=== PATIENT | male | born 1965 | race Caucasian/White ===

== ENCOUNTER → 2017-01-17 | Outpatient (CLI) | payer BC, OTHER ==
--- NOTE | 2017-01-17 10:39 | XR ---
EXAMINATION TYPE: XR Hip Complete LT DATE OF EXAM: 01/17/2017 CLINICAL HISTORY: Left hip pain with no known injury TECHNIQUE: AP and frogleg views of the left hip are obtained. COMPARISON: None. FINDINGS: There is no acute fracture/dislocation evident in the left hip. There is mild medial and c ephalad joint space narrowing with acetabular sclerosis as well as foveal osteophyte and small acetab ular sourcil osteophyte. No subchondral cysts are seen. The overlying soft tissue appears unremarkab le. Osseous mineralization is within normal limits. IMPRESSION: There is no acute fracture or dislocation in the left hip. Mild left femoral acetabular osteoarthropathy.
--- NOTE | 2017-01-17 10:40 | XR ---
EXAMINATION TYPE: XR lumbar spine 2 or 3V DATE OF EXAM: 01/17/2017 CLINICAL HISTORY: Low back pain with no known injury TECHNIQUE: Frontal and lateral images of the lumbar spine are obtained. COMPARISON: None FINDINGS: There are 5 lumbar type vertebral bodies identified. The lumbar spine shows satisfactory alignment without evidence of acute fracture or dislocation. Vertebral body heights and disk space he ights are within normal limits. Mild intervertebral disc space narrowing is seen at T12-L1 and L1-L 2. Small inferior endplate Schmorl's nodes are seen of T12 and L1. Mild facet arthropathy is present at L4-L5 and L5-S1 as well as small anterior multilevel osteophytes. The overlying soft tissue appear s unremarkable. Mild atherosclerosis is seen of the abdominal aorta. IMPRESSION: 1. No acute fracture or dislocation is seen in the lumbar spine. 2. Mild multilevel degenerative disc disease. If pain persists MRI could be performed to evaluate for disc herniation.
== END | disposition home or self-care (01) ==
LOC: RADXRMAIN 08:49
PROVIDERS: ATTEND Family Medicine
DX: M16.12 Unilateral primary osteoarthritis, left hip (principal); M51.36 Other intervertebral disc degeneration, lumbar region
CPT/HCPCS: 72100; 73502

== ENCOUNTER 2017-05-06 06:37 | Day surgery (SDC) | payer BC ==
[2017-05-02 14:14] VITALS: BMI 26.4
[~2017-05-06 06:37] MED LIST: LACTATED RINGERS 1,000 ML IV SCH
[2017-05-06 07:24] VITALS: TEMP 98
[2017-05-06] MEDS ORDERED: LIDOCAINE 1% 20 ML VIAL (10MG/ML) FOR IV START INTRADERMA ONE (07:34)
[2017-05-06] MEDS ORDERED: LIDOCAINE 1% INJ 10MG/ML (20 ML MDV) ONE (07:37)
[2017-05-06] MEDS ORDERED: fentaNYL (PF) 50 MCG/ML 2 ML AMP ONE (07:37)
[2017-05-06] MEDS ORDERED: PROPOFOL 10 MG/ML 20 ML VIAL IV ONE (07:37)
[2017-05-06] MEDS ORDERED: MIDAZOLAM 2 MG/2 ML VIAL ONE (07:37)
--- NOTE | 2017-05-06 08:10 | P.PCN ---
Date of Procedure: 05/06/17 Preoperative Diagnosis: Screening colonoscopy Postoperative Diagnosis: Small internal hemorrhoids Procedure(s) Performed: Colonoscopy Anesthesia: MAC Surgeon: Radha Michele Estimated Blood Loss (ml): 0 IV fluids (ml): 300 Pathology: none sent Condition: stable Disposition: PACU Indications for Procedure: Screening colonoscopy Operative Findings: Normal mucosa from rectum to cecum Small internal hemorrhoids Description of Procedure: Patient was taken to the endoscopy suite and placed in the left lateral decubitus position. Sedation was administered. Rectal examination was performed and patient was noted to have good sphincter tone with no masses. The colonoscope was passed through the anus into the rectum. It was passed to the sigmoid colon up to the splenic flexure. It was passed through the transverse colon hepatic flexure right colon down to the area of the cecum. Circumferential observation of the mucosa did not reveal any lesions of concern in the cecum or right colon. No lesions of concern were noted in the transverse colon left colon or sigmoid colon. The scope was brought down to the rectum where it was retroflexed small internal hemorrhoids identified. Approximately 6-1/2 minutes were taken to withdraw the scope from the area of the cecum to the rectum. Impression/plan: 1. Normal mucosa from rectum to cecum 2. Small internal hemorrhoids Plan: 1. Repeat scope 7-10 years
--- NOTE | 2017-05-06 08:11 | P.DS ---
Providers Attending physician: Radha Michele Primary care physician: Oh Whelan Plan - Discharge Summary New Discharge Prescriptions: No Action Triamcinolone Acetonide [Nasacort] 2 spray EA NOSTRIL DAILY Pantoprazole [Protonix] 40 mg PO Q2D Levocetirizine Dihydrochloride [Xyzal] 5 mg PO Q2D Albuterol Inhaler [Ventolin Hfa Inhaler] 2 inhaler INHALATION QID Discharge Medication List Levocetirizine Dihydrochloride [Xyzal] 5 mg PO Q2D 05/02/17 [History] Pantoprazole [Protonix] 40 mg PO Q2D 05/02/17 [History] Triamcinolone Acetonide [Nasacort] 2 spray EA NOSTRIL DAILY 05/02/17 [History] Albuterol Inhaler [Ventolin Hfa Inhaler] 2 inhaler INHALATION QID 05/06/17 [ History] Activity/Diet/Wound Care/Special Instructions: Do not drive today Call Dr. Whelan if any questions or concerns regarding procedure Discharge Disposition: HOME SELF-CARE
[2017-05-06 08:38] VITALS: BP 133/85; PULSE 61; RESP 18
== END 2017-05-06 08:49 | disposition home or self-care (01) ==
LOC: ORWHC2ENDO 06:37
PROVIDERS: ATTEND Surgery
DX: Z12.11 Encounter for screening for malignant neoplasm of colon (principal); K64.8 Other hemorrhoids; J45.909 Unspecified asthma, uncomplicated; K21.9 Gastro-esophageal reflux disease without esophagitis; M19.90 Unspecified osteoarthritis, unspecified site; Z79.51 Long term (current) use of inhaled steroids; Z79.899 Other long term (current) drug therapy; Z79.1 Long term (current) use of non-steroidal anti-inflammatories (NSAID); Z79.84 Long term (current) use of oral hypoglycemic drugs; Z88.1 Allergy status to other antibiotic agents
CPT/HCPCS: J2250; J2001; J3010; J2704; G0121

== ENCOUNTER 2018-01-13 14:59 | Observation (INO) | payer BC ==
[2018-01-13] MEDS ORDERED: NITROGLYCERIN OINT 1 INCH/GM PACKET TOPICAL STA (15:25)
[2018-01-13] MEDS ORDERED: ASPIRIN 81 MG PO STA (15:25)
--- NOTE | 2018-01-13 15:30 | ED ---
General Adult HPI - General Chief complaint: Chest Pain Stated complaint: SOB,burning in chest Time Seen by Provider: 01/13/18 15:19 Source: patient Mode of arrival: ambulatory Limitations: no limitations - History of Present Illness Initial comments: Patient is a pleasant 42-year-old male presenting to the emergency department chest discomfort. Symptoms have been occurring over several days. Discomfort feels like burning in his chest. Patient does have some associated dyspnea. Symptoms are mild at this time. Symptoms have been intermittent. Symptoms are not necessarily exertional. No nausea vomiting. No fever. No sweating. Patient did have similar symptoms a proximal he 5 years ago associated with reflux. - Related Data Home Medications Medication Instructions Recorded Confirmed Levocetirizine Dihydrochloride 5 mg PO DAILY 05/02/17 01/13/18 [Xyzal] Pantoprazole [Protonix] 40 mg PO DAILY 05/02/17 01/13/18 Triamcinolone Acetonide [Nasacort] 2 spray EA NOSTRIL DAILY PRN 05/02/17 Albuterol Inhaler [Ventolin Hfa 2 puff INHALATION RT-QID PRN 05/06/17 01/13/18 Inhaler] Allergies Allergy/AdvReac Type Severity Reaction Status Date / Time clindamycin [From Cleocin] Allergy Rash/Hives Verified 01/13/18 16:10 Tetracyclines AdvReac Nausea Verified 01/13/18 16:10 Review of Systems ROS Statement: Those systems with pertinent positive or pertinent negative responses have been documented in the HPI. ROS Other: All systems not noted in ROS Statement are negative. Constitutional: Denies: fever Eyes: Denies: eye pain ENT: Denies: ear pain Respiratory: Reports: dyspnea. Denies: cough Cardiovascular: Reports: chest pain Gastrointestinal: Denies: abdominal pain Genitourinary: Denies: dysuria Musculoskeletal: Denies: back pain Skin: Denies: rash Neurological: Denies: weakness Past Medical History Past Medical History: Asthma, GERD/Reflux Additional Past Medical History / Comment(s): SEASONAL ALLERGIES. ALLERGY INDUCED ASTHMA History of Any Multi-Drug Resistant Organisms: None Reported Additional Past Surgical History / Comment(s): POLYP REMOVED FROM VOCAL CORD Past Anesthesia/Blood Transfusion Reactions: No Reported Reaction Past Psychological History: No Psychological Hx Reported Smoking Status: Never smoker Past Alcohol Use History: Occasional Past Drug Use History: None Reported - Past Family History Mother Family Medical History: No Reported History General Exam Limitations: no limitations General appearance: alert, in no apparent distress Head exam: Present: atraumatic Eye exam: Present: normal appearance, PERRL ENT exam: Present: normal oropharynx Neck exam: Present: normal inspection Respiratory exam: Present: normal lung sounds bilaterally. Absent: chest wall tenderness Cardiovascular Exam: Present: regular rate, normal rhythm Expanded Peripheral pulses: 2+: Radial (R), Radial (L), Posterior Tibialis (R), Posterior Tibialis (L), Dorsalis Pedis (R), Dorsalis Pedis (L) GI/Abdominal exam: Present: soft. Absent: tenderness Extremities exam: Present: normal inspection. Absent: pedal edema, calf tenderness Neurological exam: Present: alert Psychiatric exam: Present: normal affect, normal mood Skin exam: Present: normal color Course Vital Signs 01/13/18 01/13/18 01/13/18 15:04 15:08 16:08 Temperature 98.3 F Pulse Rate 67 65 Respiratory 18 20 20 Rate Blood Pressure 172/99 140/96 O2 Sat by Pulse 100 100 Oximetry EKG Findings - EKG Comments: EKG Findings:: Normal sinus rhythm at 61. FL 146. QRS 114. QT 398. QTC 400. Left axis. Normal QRS. No acute ST change. Medical Decision Making - Medical Decision Making Patient reevaluated and resting comfortably in bed. Symptoms have improved and are now near resolved. Patient updated on results and plan. Dr. Whelan has been paged. - Lab Data Result diagrams: 01/13/18 15:21 01/13/18 15:21 Lab Results 01/13/18 01/13/18 01/13/18 Range/Units 15:21 15:21 15:21 WBC 6.5 (3.8-10.6) k/uL RBC 5.00 (4.30-5.90) m/uL Hgb 15.0 (13.0-17.5) gm/dL Hct 44.9 (39.0-53.0) % MCV 89.8 (80.0-100.0) fL MCH 30.0 (25.0-35.0) pg MCHC 33.4 (31.0-37.0) g/dL RDW 11.7 (11.5-15.5) % Plt Count 207 (150-450) k/uL Neutrophils % 55 % Lymphocytes % 34 % Monocytes % 6 % Eosinophils % 2 % Basophils % 0 % Neutrophils # 3.6 (1.3-7.7) k/uL Lymphocytes # 2.2 (1.0-4.8) k/uL Monocytes # 0.4 (0-1.0) k/uL Eosinophils # 0.1 (0-0.7) k/uL Basophils # 0.0 (0-0.2) k/uL PT (9.0-12.0) sec INR (<1.2) APTT (22.0-30.0) sec Sodium 143 (137-145) mmol/L Potassium 3.9 (3.5-5.1) mmol/L Chloride 108 H (98-107) mmol/L Carbon Dioxide 23 (22-30) mmol/L Anion Gap 12 mmol/L BUN 14 (9-20) mg/dL Creatinine 0.91 (0.66-1.25) mg/dL Est GFR (CKD-EPI)AfAm >90 (>60 ml/min/1.73 sqM) Est GFR (CKD-EPI)NonAf >90 (>60 ml/min/1.73 sqM) Glucose 107 H (74-99) mg/dL Calcium 9.8 (8.4-10.2) mg/dL Magnesium 2.2 (1.6-2.3) mg/dL Total Bilirubin 0.5 (0.2-1.3) mg/dL AST 36 (17-59) U/L ALT 34 (21-72) U/L Alkaline Phosphatase 49 (38-126) U/L Total Creatine Kinase 108 (55-170) U/L CK-MB (CK-2) 1.8 (0.0-2.4) ng/mL CK-MB (CK-2) Rel Index 1.7 Troponin I <0.012 (0.000-0.034) ng/mL NT-Pro-B Natriuret Pep pg/mL Total Protein 8.0 (6.3-8.2) g/dL Albumin 4.8 (3.5-5.0) g/dL 01/13/18 01/13/18 Range/Units 15:21 15:21 WBC (3.8-10.6) k/uL RBC (4.30-5.90) m/uL Hgb (13.0-17.5) gm/dL Hct (39.0-53.0) % MCV (80.0-100.0) fL MCH (25.0-35.0) pg MCHC (31.0-37.0) g/dL RDW (11.5-15.5) % Plt Count (150-450) k/uL Neutrophils % % Lymphocytes % % Monocytes % % Eosinophils % % Basophils % % Neutrophils # (1.3-7.7) k/uL Lymphocytes # (1.0-4.8) k/uL Monocytes # (0-1.0) k/uL Eosinophils # (0-0.7) k/uL Basophils # (0-0.2) k/uL PT 10.3 (9.0-12.0) sec INR 1.0 (<1.2) APTT 25.1 (22.0-30.0) sec Sodium (137-145) mmol/L Potassium (3.5-5.1) mmol/L Chloride (98-107) mmol/L Carbon Dioxide (22-30) mmol/L Anion Gap mmol/L BUN (9-20) mg/dL Creatinine (0.66-1.25) mg/dL Est GFR (CKD-EPI)AfAm (>60 ml/min/1.73 sqM) Est GFR (CKD-EPI)NonAf (>60 ml/min/1.73 sqM) Glucose (74-99) mg/dL Calcium (8.4-10.2) mg/dL Magnesium (1.6-2.3) mg/dL Total Bilirubin (0.2-1.3) mg/dL AST (17-59) U/L ALT (21-72) U/L Alkaline Phosphatase (38-126) U/L Total Creatine Kinase (55-170) U/L CK-MB (CK-2) (0.0-2.4) ng/mL CK-MB (CK-2) Rel Index Troponin I (0.000-0.034) ng/mL NT-Pro-B Natriuret Pep 32 pg/mL Total Protein (6.3-8.2) g/dL Albumin (3.5-5.0) g/dL - Radiology Data Radiology results: image reviewed (Chest x-ray shows no acute process) Disposition Clinical Impression: Chest pain Disposition: ADMITTED IP TO THIS HOSP Is patient prescribed a controlled substance at d/c from ED?: No Referrals: Oh Whelan MD [Primary Care Provider] - 1-2 days Decision Time: 16:38
[2018-01-13 15:54] LABS: Basophils % (A) 0 %; Eosinophils # (A) 0.1 k/uL (0-0.7); Eosinophils % (A) 2 %; HCT 44.9 % (39.0-53.0); Lymphocytes # (A) 2.2 k/uL (1.0-4.8); Lymphocytes % (A) 34 %; MCHC 33.4 g/dL (31.0-37.0); MCV 89.8 fL (80.0-100.0); Mean Platelet Volume 6.9; Monocytes # (A) 0.4 k/uL (0-1.0); Monocytes % (A) 6 %; Neutrophils # (A) 3.6 k/uL (1.3-7.7); Neutrophils % (A) 55 %; Platelet Count 207 k/uL (150-450); RDW 11.7 % (11.5-15.5); WBC 6.5 k/uL (3.8-10.6)
--- NOTE | 2018-01-13 15:57 | XR ---
EXAMINATION TYPE: XR chest 2V DATE OF EXAM: 01/13/2018 COMPARISON: Prior chest x-ray 02/12/2016 HISTORY: Chest pain TECHNIQUE: Frontal and lateral views of the chest are obtained. FINDINGS: There is no focal air space opacity, pleural effusion, or pneumothorax seen. The cardiac silhouette size is within normal limits. The osseous structures are intact. There are overlying car diac leads. IMPRESSION: No acute cardiopulmonary process.
[2018-01-13 16:03] LABS: ALT 34 U/L (21-72); AST 36 U/L (17-59); Albumin 4.8 g/dL (3.5-5.0); Alkaline Phosphatase 49 U/L (38-126); Anion Gap 12 mmol/L; Blood Urea Nitrogen 14 mg/dL (9-20); Calcium 9.8 mg/dL (8.4-10.2); Carbon Dioxide 23 mmol/L (22-30); Chloride 108 mmol/L (98-107); Creatine Kinase 108 U/L (55-170); Glucose 107 mg/dL (74-99); Magnesium 2.2 mg/dL (1.6-2.3); Partial Thromboplastin Time 25.1 sec (22.0-30.0); Potassium 3.9 mmol/L (3.5-5.1); Prothrombin Time 10.3 sec (9.0-12.0); Sodium 143 mmol/L (137-145); Total Bilirubin 0.5 mg/dL (0.2-1.3)
[2018-01-13 16:15] LABS: Creatine Kinase MB 1.8 ng/mL (0.0-2.4); Troponin I <0.012 ng/mL (0.000-0.034)
[2018-01-13] MEDS ORDERED: NITROGLYCERIN SL TABS 0.4 MG TAB SUBLINGUAL PRN (16:38)
[2018-01-13] MEDS ORDERED: ALBUTEROL NEBULIZED 2.5 MG/3 ML INHALATION PRN (17:45)
[2018-01-13] MEDS ORDERED: FLUTICASONE 50MCG/SPRAY NASAL 16GM EA NOSTRIL PRN (17:45)
[2018-01-13] MEDS: NITROGLYCERIN OINT 1 INCH/GM PACKET TOPICAL SCH (20:20)
[2018-01-13 22:27] LABS: Creatine Kinase 96 U/L (55-170)
[2018-01-13 22:38] LABS: Creatine Kinase MB 1.6 ng/mL (0.0-2.4); Troponin I <0.012 ng/mL (0.000-0.034)
[2018-01-14 01:21] LABS: Cholesterol 205 mg/dL (<200); HDL Cholesterol 51 mg/dL (40-60); LDL Cholesterol,Calculated 138 mg/dL (0-99); Triglycerides 79 mg/dL (<150)
[2018-01-14 04:09] LABS: Creatine Kinase 94 U/L (55-170)
[2018-01-14 04:21] LABS: Creatine Kinase MB 1.5 ng/mL (0.0-2.4); Troponin I <0.012 ng/mL (0.000-0.034)
[2018-01-14 08:03] VITALS: RESP 18
[2018-01-14] MEDS ORDERED: LORATADINE 10 MG TAB PO SCH (09:00)
[2018-01-14] MEDS ORDERED: PANTOPRAZOLE 40 MG TABLET PO SCH (09:00)
[2018-01-14] MEDS ORDERED: ASPIRIN 325 MG TAB PO SCH (09:00)
[2018-01-14] MEDS ORDERED: RX INFO: IV CONTRAST WAS GIVEN 1 EACH MISC MISCELLANE PRN (09:31)
--- NOTE | 2018-01-14 10:22 | P.CRDCN ---
History of Present Illness History of present illness: Mr. eHrr is a pleasant 52-year-old male past medical history significant for dilated aortic root, gastroesophageal reflux disease and asthma. He follows with Dr. Min in the office. He denies history of coronary artery disease. We have been asked to see him in consultation for chest pain. He complains of feeling a burning sensation in the midsternal region associated with shortness of breath. The discomfort came at rest with no specific aggravating factors. He states the burning and shortness of breath felt exactly like symptoms he gets frequently that are related to his acid reflux. However, he checked his blood pressure and it was 140/110, this alarmed him and he decided to come for evaluation. He denies dizziness, palpitaitons, nausea, vomiting or diaphoresis. He is known to have a dilated aortic root, most recently at 4.2 cm. He last was in the office last year in February and at that time was advised to start lopressor 25 mg BID however he did not start that medication for personal reasons. At the time of my exam he is sitting up comfortably in bed in no acute distress. His symptoms have completely subsided. EKG reveals sinus mechanism with no acute ST or T-wave abnormalities. Chest xray negative for an acute cardiopulmonary process. Laboratory data reviewed, hemoglobin 15, platelets 207, sodium 143, potassium 3.9, creatinine 0.91, magnesium 2.2, cardiac enzymes negative 3, LDL 138, HDL 51. He takes no daily cardiac medications. Review of Systems At the time of my exam: CONSTITUTIONAL: Denies fever. Denies chills. EYES: Denies blurred vision. Denies vision changes. Denies eye pain. EARS, NOSE, MOUTH & THROAT: Denies headache. Denies sore throat. Denies ear pain. CARDIOVASCULAR: Denies chest pain. Denies shortness of breath. Denies orthopnea. Denies PND. Denies palpitations. RESPIRATORY: Denies cough. GASTROINTESTINAL: Denies abdominal pain. Denies diarrhea. Denies constipation. Denies nausea. Denies vomiting. MUSCULOSKELETAL: Denies myalgias. INTEGUMENTARY: Denies pruitis. Denies rash. NEUROLOGIC: Denies numbness. Denies tingling. Denies weakness. PSYCHIATRIC: Denies anxiety. Denies depression. ENDOCRINE: Denies fatigue. Denies weight change. Denies polydipsia. Denies polyurina. GENITOURINARY: Denies burning, hematuria or urgency with micturation. HEMATOLOGIC: Denies history of anemia. Denies bleeding. Past Medical History Past Medical History: Asthma, GERD/Reflux, Osteoarthritis (OA) Additional Past Medical History / Comment(s): SEASONAL ALLERGIES, arhtirits neck and lower back,2nd hand smoke exposure growing up. ALLERGY INDUCED ASTHMA History of Any Multi-Drug Resistant Organisms: None Reported Additional Past Surgical History / Comment(s): POLYP REMOVED FROM VOCAL CORD, colonoscopy Past Anesthesia/Blood Transfusion Reactions: No Reported Reaction Smoking Status: Never smoker - Past Family History Mother Family Medical History: Hypertension Additional Family Medical History / Comment(s): was started on bp meds at age 35. gallstones(sx0 Father Additional Family Medical History / Comment(s): age 52 from complications from smoking and etoh abuse Medications and Allergies Home Medications Medication Instructions Recorded Confirmed Type Levocetirizine Dihydrochloride 5 mg PO DAILY 05/02/17 01/13/18 History [Xyzal] Pantoprazole [Protonix] 40 mg PO DAILY 05/02/17 01/13/18 History Triamcinolone Acetonide [Nasacort] 2 spray EA NOSTRIL DAILY PRN 05/02/17 History Albuterol Inhaler [Ventolin Hfa 2 puff INHALATION RT-QID PRN 05/06/17 01/13/18 History Inhaler] Allergies Allergy/AdvReac Type Severity Reaction Status Date / Time clindamycin [From Cleocin] Allergy Rash/Hives Verified 01/13/18 16:10 Tetracyclines AdvReac Nausea Verified 01/13/18 16:10 Physical Exam Vitals: Vital Signs Temp Pulse Pulse Resp BP BP Pulse Ox 01/14/18 03:55 98.5 F 58 L 16 130/77 98 01/14/18 03:11 16 01/13/18 23:25 16 01/13/18 23:24 98.4 F 56 L 16 121/72 99 01/13/18 20:00 16 01/13/18 19:40 97.9 F 60 16 127/79 98 01/13/18 18:00 99 01/13/18 17:15 98.6 F 60 18 135/86 98 01/13/18 17:00 98.1 F 65 17 134/91 99 01/13/18 16:08 65 20 140/96 100 01/13/18 15:08 20 01/13/18 15:04 98.3 F 67 18 172/99 100 Intake and Output 01/13/18 01/14/18 01/14/18 22:59 06:59 14:59 Other: Voiding Method Toilet Toilet # Voids 1 2 Weight 79.5 kg Blood pressure 131/82 heart rate 62 afebrile maintaining oxygen saturation on room air GENERAL: This is a 52-year-old male in no apparent distress at the time of my examination. HEENT: Head is atraumatic, normocephalic. Pupils are equal, round. Sclerae anicteric. Conjunctivae are clear. Mucous membranes of the mouth are moist. Neck is supple. There is no jugular venous distention. No carotid bruit is heard. LUNGS: Clear to auscultation no wheezes, rales or rhonchi. No chest wall tenderness is noted on palpation or with deep breathing. HEART: Regular rate and rhythm without murmurs, rubs or gallops. S1 and S2 heard. ABDOMEN: Soft, nontender. Bowel sounds are heard. No organomegaly noted. EXTREMITIES: No evidence of peripheral edema and no calf tenderness noted. VASCULAR: Radial and dorsalis pedis pulses palpated, no evidence of clubbing. NEUROLOGIC: Patient is awake, alert and oriented x3. Results 01/13/18 15:21 01/13/18 15:21 Cardiac Enzymes 01/13/18 01/13/18 01/13/18 Range/Units 15:21 15:21 21:36 AST 36 (17-59) U/L CK-MB (CK-2) 1.8 1.6 (0.0-2.4) ng/mL Troponin I <0.012 <0.012 (0.000-0.034) ng/mL 01/14/18 Range/Units 03:14 AST (17-59) U/L CK-MB (CK-2) 1.5 (0.0-2.4) ng/mL Troponin I <0.012 (0.000-0.034) ng/mL Coagulation 01/13/18 Range/Units 15:21 PT 10.3 (9.0-12.0) sec APTT 25.1 (22.0-30.0) sec Lipids 01/13/18 Range/Units 15:21 Triglycerides 79 (<150) mg/dL Cholesterol 205 H (<200) mg/dL HDL Cholesterol 51 (40-60) mg/dL CBC 01/13/18 Range/Units 15:21 WBC 6.5 (3.8-10.6) k/uL RBC 5.00 (4.30-5.90) m/uL Hgb 15.0 (13.0-17.5) gm/dL Hct 44.9 (39.0-53.0) % Plt Count 207 (150-450) k/uL Comprehensive Metabolic Panel 01/13/18 Range/Units 15:21 Sodium 143 (137-145) mmol/L Potassium 3.9 (3.5-5.1) mmol/L Chloride 108 H (98-107) mmol/L Carbon Dioxide 23 (22-30) mmol/L BUN 14 (9-20) mg/dL Creatinine 0.91 (0.66-1.25) mg/dL Glucose 107 H (74-99) mg/dL Calcium 9.8 (8.4-10.2) mg/dL AST 36 (17-59) U/L ALT 34 (21-72) U/L Alkaline Phosphatase 49 (38-126) U/L Total Protein 8.0 (6.3-8.2) g/dL Albumin 4.8 (3.5-5.0) g/dL Current Medications Generic Name Dose Route Start Last Admin Trade Name Freq PRN Reason Stop Dose Admin Albuterol Sulfate 2.5 mg 01/13/18 17:45 Ventolin Nebulized INHALATION RT-QID PRN Shortness Of Breath Aspirin 325 mg 01/14/18 09:00 Aspirin PO DAILY VARUN Fluticasone Propionate 2 spray 01/13/18 17:45 Flonase Nasal [place] EA NOSTRIL DAILY PRN Allergy Symptoms Loratadine 10 mg 01/14/18 09:00 Claritin PO DAILY VARUN Nitroglycerin 1 inch 01/13/18 18:00 01/13/18 20:20 Nitro-Bid Oint TOPICAL Not Given Q6HR VARUN Nitroglycerin 0.4 mg 01/13/18 16:38 Nitrostat SUBLINGUAL Q5M PRN Chest Pain Pantoprazole Sodium 40 mg 01/14/18 09:00 Protonix PO DAILY VARUN Sodium Chloride 10 ml 01/13/18 21:00 01/13/18 20:19 Saline Flush IV 10 ml BID VARUN Administration Intake and Output 01/13/18 01/14/18 01/14/18 22:59 06:59 14:59 Other: Voiding Method Toilet Toilet # Voids 1 2 Weight 79.5 kg 01/13/18 15:21 01/13/18 15:21 Assessment and Plan Assessment: ASSESSMENT Chest pain, atypical. An acute coronary event has some ruled out with no EKG evidence of ischemia and negative cardiac enzymes. Aortic aneurysm, 4.2 cm at last assessment Gastroesophageal reflux disease Hypertension Dyslipidemia PLAN Obtain 2-D echocardiogram and Doppler study to assess cardiac structure and function. Perform stress echocardiogram to assess for stress-induced cardiac ischemia Obtain CT angios the chest to assess aorta. We recommend initiating him on metoprolol 25 mg twice a day for optimal blood pressure control in light of his aortic aneurysm. Lifestyle modifications recommended for lowering of LDL cholesterol with diet and exercise. Plan has been discussed in detail with the patient and he is agreeable. Nurse Practitioner note has been reviewed, I agree with a documented findings and plan of care. Patient was seen and examined.
[2018-01-14] MEDS ORDERED: METOPROLOL TARTRATE 25 MG TAB PO SCH (10:30)
--- NOTE | 2018-01-14 10:50 | CT ---
EXAMINATION TYPE: CT angio chest DATE OF EXAM: 01/14/2018 COMPARISON: 11/30/2013 HISTORY: 52-year-old male Thoracic aneurysm, chest pain TECHNIQUE: Contiguous axial scanning of the chest performed with IV Contrast, patient injected with 1 00 mL of Isovue 370. Coronal/sagittal MIP reconstructions performed. 3-D reconstructions generated on a dedicated independent workstation. CT DLP: 247.3 mGycm Automated exposure control for dose reduction was used. FINDINGS: Heart normal size without pericardial effusion. Ascending aorta overlying mildly aneurysmal at 4.0 cm. Conventional arch vessel branching anatomy. No thoracic lymphadenopathy. Strandy atelectasis at the posterior lung bases. Stable 5 mm pulmonary nodule along the minor fissure anterior midlung, axial image 32. Stable tiny 2 mm right lower lobe pulmonary nodule, axial image 36 . No consolidation or pleural effusion. Visualized upper abdomen shows hilar splenules. Bones: Endplate spondylosis midthoracic spine. No osseous destructive process. IMPRESSION: MILD ASCENDING AORTIC ANEURYSM AT 4.0 CM STABLE BACK TO 2013. A COUPLE 5 MM AND SMALLER PULMONARY NODULES ON THE RIGHT ARE ALSO STABLE FROM THAT TIME COMPATIBLE WI TH A BENIGN ETIOLOGY.
--- NOTE | 2018-01-14 11:27 | P.HPIM ---
History of Present Illness 52-year-old male presented to family physician with complaints of intermittent chest pain. A few days ago stated that he had radiation to his arms and stent feel well. Patient has a history of GERD and asthma. Patient has history of mild ascending aortic aneurysm 4.0 stable history of pulmonary nodule stable. Patient is to be evaluated by cardiology for chest pain Review of Systems Constitutional: Reports fatigue Cardiovascular: Reports chest pain Gastrointestinal: Reports heartburn Past Medical History Past Medical History: Asthma, GERD/Reflux, Osteoarthritis (OA) Additional Past Medical History / Comment(s): SEASONAL ALLERGIES, arhtirits neck and lower back,2nd hand smoke exposure growing up. ALLERGY INDUCED ASTHMA History of Any Multi-Drug Resistant Organisms: None Reported Additional Past Surgical History / Comment(s): POLYP REMOVED FROM VOCAL CORD, colonoscopy Past Anesthesia/Blood Transfusion Reactions: No Reported Reaction Smoking Status: Never smoker - Past Family History Mother Family Medical History: Hypertension Additional Family Medical History / Comment(s): was started on bp meds at age 35. gallstones(sx0 Father Additional Family Medical History / Comment(s): age 52 from complications from smoking and etoh abuse Medications and Allergies Home Medications Medication Instructions Recorded Confirmed Type Levocetirizine Dihydrochloride 5 mg PO DAILY 05/02/17 01/13/18 History [Xyzal] Pantoprazole [Protonix] 40 mg PO DAILY 05/02/17 01/13/18 History Triamcinolone Acetonide [Nasacort] 2 spray EA NOSTRIL DAILY PRN 05/02/17 History Albuterol Inhaler [Ventolin Hfa 2 puff INHALATION RT-QID PRN 05/06/17 01/13/18 History Inhaler] Metoprolol Tartrate [Lopressor] 25 mg PO BID #60 tab 01/14/18 Rx Allergies Allergy/AdvReac Type Severity Reaction Status Date / Time clindamycin [From Cleocin] Allergy Rash/Hives Verified 01/13/18 16:10 Tetracyclines AdvReac Nausea Verified 01/13/18 16:10 Physical Exam Vitals: Vital Signs Temp Pulse Pulse Resp BP BP Pulse Ox 01/14/18 08:00 62 18 01/14/18 07:25 97.9 F 62 18 131/82 99 01/14/18 03:55 98.5 F 58 L 16 130/77 98 01/14/18 03:11 16 01/13/18 23:25 16 01/13/18 23:24 98.4 F 56 L 16 121/72 99 01/13/18 20:00 16 01/13/18 19:40 97.9 F 60 16 127/79 98 01/13/18 18:00 99 01/13/18 17:15 98.6 F 60 18 135/86 98 01/13/18 17:00 98.1 F 65 17 134/91 99 01/13/18 16:08 65 20 140/96 100 01/13/18 15:08 20 01/13/18 15:04 98.3 F 67 18 172/99 100 Intake and Output 01/13/18 01/14/18 01/14/18 22:59 06:59 14:59 Other: Voiding Method Toilet Toilet Toilet # Voids 1 2 Weight 79.5 kg Results CBC & Chem 7: 01/13/18 15:21 01/13/18 15:21 Labs: Abnormal Lab Results - Last 24 Hours (Table) 01/13/18 01/13/18 Range/Units 15:21 15:21 Chloride 108 H (98-107) mmol/L Glucose 107 H (74-99) mg/dL Cholesterol 205 H (<200) mg/dL LDL Cholesterol, Calc 138 H (0-99) mg/dL Chest x-ray: report reviewed CT scan - chest: report reviewed Thrombosis Risk Factor Assmnt - Choose All That Apply Any of the Below Risk Factors Present?: Yes Each Factor Represents 1 point: Age 41-60 years Other Risk Factors: No Thrombosis Risk Factor Assessment Total Risk Factor Score: 1 Thrombosis Risk Factor Assessment Level: Low Risk Assessment and Plan Plan: Assessment Chest pain troponins negative 3 History of asthma History of GERD History of osteoarthritis Mild ascending aortic aneurysm 4.0 stable Pulmonary nodules stable Plan Continue evaluation by cardiology
--- NOTE | 2018-01-14 11:41 | P.STRESS ---
- Stress Test Note Stress Test Results/Findings: Exam Performed: stress echo exercise Exam Date: 01/14/18 Reason for Exam: CP Height: 5 ft 8 in Weight: 79.5 kg Protocol: KARI Stage: 3 Duration of Exercise: 8 MIN Resting Heart Rate: 78 Resting Blood Pressure: 119/53 Maximum Achieved Heart Rate: 175 Maximum Achieved Blood Pressure: 178/83 85% PMHR: 141 100% PMHR: 166 METS: 9.7 Technologist Comment: Stress Test Results/Findings: This is a 52-year-old gentleman with history of chest pain being evaluated for cardiac status. Stress data: Baseline EKG showed sinus rhythm with normal GA interval and QRS duration. Blood pressure at rest is 119/50. Pulse rate of 78. Patient walked on the Kari protocol for 8 minutes achieving a maximal heart rate of 175 with a blood pressure 168/81. EKGs taken during and after the exercise did not reveal any significant changes from the baseline. Echo data: Baseline echo images showed normal wall motion and thickening. Exercise echo images showed augmentation of wall motion and thickening in all segments. Final impression: #1. Negative stress test #2. Negative stress echo.
[2018-01-14 11:45] VITALS: BP 116/75; PULSE 64; TEMP 98.5
--- NOTE | 2018-01-14 11:51 | ECHOF ---
Referral Reason:cp, sob MEASUREMENTS -------- HEIGHT: 172.7 cm WEIGHT: 79.4 kg BP: RVIDd: 3.2 cm (< 3.3) IVSd: 1.0 cm (0.6 - 1.1) LVIDd: 4.3 cm (3.9 - 5.3) LVPWd: 1.1 cm (0.6 - 1.1) IVSs: 1.3 cm LVIDs: 3.4 cm LVPWs: 1.3 cm LAESV Index (A-L): 26.59 ml/m Ao Diam: 3.6 cm (2.0 - 3.7) AV Cusp: 2.1 cm (1.5 - 2.6) LA Diam: 1.6 cm (2.7 - 3.8) EPSS: 0.7 cm MV E Theron: 0.86 m/s MV DecT: 293 ms MV A Theron: 1.08 m/s MV E/A Ratio: 0.80 RAP: 5.00 mmHg RVSP: 9.63 mmHg MV EF SLOPE: 71.92 mm/s (70 - 150) MV EXCURSION: 1.74 cm (> 18.000) FINDINGS -------- Sinus rhythm. This was a technically good study. The left ventricular size is normal. Left ventricular wall thickness is normal. Overall left vent ricular systolic function is normal with, an EF between 55 - 60 %. The right ventricle is mildly enlarged. Normal LA size by volume 22+/-6 ml/m2. The right atrium is normal in size. The aortic valve is trileaflet, and appears structurally normal. No aortic stenosis or regurgitation. The mitral valve leaflets are mildly thickened. There is trace to mild mitral regurgitation. Trace tricuspid regurgitation present. Right ventricular systolic pressure is normal at < 35 mmHg. There is no evidence of pulmonary hypertension. Trace/mild (physiologic) pulmonic regurgitation. The aortic root is borderline dilated, up to 3.7 cm at the level of the annulus. Normal inferior vena cava with normal inspiratory collapse consistent with estimated right atrial pre ssure of 5 mmHg. There is no pericardial effusion. CONCLUSIONS -------- 1. Sinus rhythm. 2. This was a technically good study. 3. The left ventricular size is normal. 4. Left ventricular wall thickness is normal. 5. Overall left ventricular systolic function is normal with, an EF between 55 - 60 %. 6. The right ventricle is mildly enlarged. 7. Normal LA size by volume 22+/-6 ml/m2. 8. The aortic valve is trileaflet, and appears structurally normal. No aortic stenosis or regurgitati on. 9. The mitral valve leaflets are mildly thickened. 10. There is trace to mild mitral regurgitation. 11. Trace tricuspid regurgitation present. 12. Right ventricular systolic pressure is normal at < 35 mmHg. 13. There is no evidence of pulmonary hypertension. 14. Trace/mild (physiologic) pulmonic regurgitation. 15. The aortic root is borderline dilated, up to 3.7 cm at the level of the annulus. 16. There is no pericardial effusion. MEDICAL OFFICE ADMINISTRATOR: Salomón Castano RDCS
--- NOTE | 2018-01-14 13:47 | P.DS ---
Providers Date of admission: 01/13/18 16:38 Expected date of discharge: 01/14/18 Attending physician: Oh Whelan Consults: 01/13/18 16:38 Consult Physician Urgent Consulting Provider: Martin Gross Consult Reason/Comments: cp Do you want consulting provider notified?: Yes Primary care physician: Oh Whelan Procedures: 52-year-old male presented to the emergency room after visit to family physician for just made. Patient was evaluated by cardiology and diagnosed with atypical chest pain. Patient will follow up with family physician for GERD or gastritis. Assessment atypical chest pain troponins negative times three cleared by cardiology for discharge history of asthma GERD osteoarthritis mild ascending the aortic aneurysm 4.0 stable pulmonary nodule stable Plan follow up with family physician for outpatient workup regarding GERD start on metoprolol protect ascending aneurysm Plan - Discharge Summary Discharge Rx Participant: Yes New Discharge Prescriptions: New Metoprolol Tartrate [Lopressor] 25 mg PO BID #60 tab Aspirin 81 mg PO DAILY chew Continue Triamcinolone Acetonide [Nasacort] 2 spray EA NOSTRIL DAILY PRN PRN Reason: Allergy Symptoms Pantoprazole [Protonix] 40 mg PO DAILY Levocetirizine Dihydrochloride [Xyzal] 5 mg PO DAILY Albuterol Inhaler [Ventolin Hfa Inhaler] 2 puff INHALATION RT-QID PRN PRN Reason: Shortness Of Breath Discharge Medication List Levocetirizine Dihydrochloride [Xyzal] 5 mg PO DAILY 05/02/17 [History] Pantoprazole [Protonix] 40 mg PO DAILY 05/02/17 [History] Triamcinolone Acetonide [Nasacort] 2 spray EA NOSTRIL DAILY PRN 05/02/17 [ History] Albuterol Inhaler [Ventolin Hfa Inhaler] 2 puff INHALATION RT-QID PRN 05/06/17 [ History] Aspirin 81 mg PO DAILY chew 01/14/18 [Rx] Metoprolol Tartrate [Lopressor] 25 mg PO BID #60 tab 01/14/18 [Rx] Follow up Appointment(s)/Referral(s): Oh Whelan MD [Primary Care Provider] - 1-2 days Ck Min MD [STAFF PHYSICIAN] - 01/27/18 4:00 pm
[2018-01-15] MEDS ORDERED: ASPIRIN 81 MG PO SCH (09:00)
--- NOTE | 2018-01-15 12:44 | EST ---
Stress Test Results/Findings: Exam Performed: stress echo exercise Exam Date: 01/14/18 Reason for Exam: CP Height: 5 ft 8 in Weight: 79.5 kg Protocol: KARI Stage: 3 Duration of Exercise: 8 MIN Resting Heart Rate: 78 Resting Blood Pressure: 119/53 Maximum Achieved Heart Rate: 175 Maximum Achieved Blood Pressure: 178/83 85% PMHR: 141 100% PMHR: 166 METS: 9.7 Technologist Comment: Stress Test Results/Findings: This is a 52-year-old gentleman with history of chest pain being evaluated for cardiac status. Stress data: Baseline EKG showed sinus rhythm with normal [place] interval and QRS duration. Blood pressure at rest is 119/50. Pulse rate of 78. Patient walked on the Kari protocol for 8 minutes achieving a maximal heart rate of 175 with a blood pressure 168/81. EKGs taken during and after the exercise did not reveal any significant changes from the baseline. Echo data: Baseline echo images showed normal wall motion and thickening. Exercise echo images showed augmentation of wall motion and thickening in all segments. Final impression: #1. Negative stress test #2. Negative stress echo. REYESD
== END 2018-01-14 14:08 | disposition home or self-care (01) ==
LOC: EC 14:59 → 3OBS 16:38
PROVIDERS: ADMIT Family Medicine; ATTEND Family Medicine
DX: R07.89 Other chest pain (principal); J45.909 Unspecified asthma, uncomplicated; K21.9 Gastro-esophageal reflux disease without esophagitis; K29.70 Gastritis, unspecified, without bleeding; M19.90 Unspecified osteoarthritis, unspecified site; R91.1 Solitary pulmonary nodule; E78.5 Hyperlipidemia, unspecified; I10 Essential (primary) hypertension; I71.2 Thoracic aortic aneurysm, without rupture; Z79.899 Other long term (current) drug therapy; Z88.1 Allergy status to other antibiotic agents; T44.7X6A Underdosing of beta-adrenoreceptor antagonists, initial encounter; Z82.49 Family history of ischemic heart disease and other diseases of the circulatory system; Z81.1 Family history of alcohol abuse and dependence
CPT/HCPCS: 99285; 36415; 93005; 93306; 93351; 83880; 80061; 80053; 82550 ×2; 82553 ×2; 83735; 84484 ×2; 85025; 85610; 85730; 86677; 71046; 71275; G0378 ×2; Q9967

== ENCOUNTER → 2018-02-02 | Outpatient (CLI) | payer BC ==
--- NOTE | 2018-02-02 09:19 | US ---
EXAMINATION TYPE: US abdomen complete DATE OF EXAM: 02/02/2018 COMPARISON: NONE CLINICAL HISTORY: 52-year-old male R10.13 Epigastric pain. TECHNIQUE: Multiple sonographic images of the abdomen are obtained. FINDINGS: EXAM MEASUREMENTS: Liver Length: 15.8 cm Gallbladder Wall: 0.2 cm CBD: 0.5 cm Spleen: 11.7 cm Right Kidney: 10.4 x 5.2 x 5.7 cm Left Kidney: 11.6 x 5.0 x 4.8 cm Pancreas: Tail obscured by overlying bowel gas Liver: wnl Gallbladder: wnl Evidence for sonographic Rai's sign: No CBD: wnl Spleen: wnl Right Kidney: No hydronephrosis. Left Kidney: No hydronephrosis. There is a small 8 mm hypoechoic lesion, likely cyst, in the midpole with posterior through transmission. Low-level internal echoes are felt to be artifactual or could r epresent some debris. Upper IVC: wnl Abd Aorta: Ectatic at proximal measuring 2.6 cm. Mild atherosclerotic changes IMPRESSION: Mildly ectatic upper abdominal aorta at 2.6 cm and a probable 8 mm cyst at the midpole of the left ki dney. Some internal echoes could be artifactual or could represent debris. Otherwise, no specific abn ormality seen.
--- NOTE | 2018-02-02 13:34 | FL ---
EXAMINATION TYPE: FL UGI w esophagus DATE OF EXAM: 02/02/2018 CLINICAL HISTORY: 52-year-old male with chest pain and epigastric pain TECHNIQUE: A double contrast esophagram and UGI study is performed. Total fluoroscopy time: 1 minute 47 seconds. Total images: 45. COMPARISON: None FINDINGS: The swallowing mechanism is normal and hypopharyngeal anatomy is preserved. The cervical and thoracic portions have a normal course and caliber. Mild tertiary peristalsis is not ed. The mucosa is normal and no persistent filling defect is encountered. There is a tiny sliding hiatal hernia demonstrated. Gastroesophageal reflux could not be elicited dur ing the course of the exam. There is a small, 1 cm or smaller round filling defect along the proximal gastric body with possible central crater. The stomach and duodenum are otherwise free of any persistent filling defect and demonstrate a normal mucosal pattern. IMPRESSION: 1. Tiny sliding hiatal hernia. Otherwise, normal appearance to the esophagus. 2. A 1 cm or smaller filling defect in the proximal gastric body could represent a hyperplastic polyp or small gastric ulcer. The latter is favored. Consider endoscopy.
== END | disposition home or self-care (01) ==
LOC: RADUSWWP 06:53
PROVIDERS: ATTEND Family Medicine
DX: I77.811 Abdominal aortic ectasia (principal); K44.9 Diaphragmatic hernia without obstruction or gangrene
CPT/HCPCS: 74240; 76700

== ENCOUNTER → 2019-12-24 | Outpatient (CLI) | payer OTHER ==
[2019-12-24 08:39] LABS: Basophils % (A) 0 %; Eosinophils # (A) 0.2 k/uL (0-0.7); Eosinophils % (A) 4 %; HCT 44.6 % (39.0-53.0); HGB 14.6 gm/dL (13.0-17.5); Lymphocytes # (A) 1.7 k/uL (1.0-4.8); Lymphocytes % (A) 29 %; MCH 29.9 pg (25.0-35.0); MCHC 32.7 g/dL (31.0-37.0); MCV 91.7 fL (80.0-100.0); Monocytes # (A) 0.3 k/uL (0-1.0); Monocytes % (A) 6 %; Neutrophils # (A) 3.6 k/uL (1.3-7.7); Neutrophils % (A) 60 %; Platelet Count 190 k/uL (150-450); RBC 4.86 m/uL (4.30-5.90); RDW 11.7 % (11.5-15.5)
[2019-12-24 17:32] LABS: African American GFR (CKD) 97.1 (60.0-200.0); Albumin 4.5 g/dL (3.80-4.90); Albumin/Globulin Ratio 1.73 (1.60-3.17); Anion Gap 9.3 mmol/L (4.00-12.00); Calcium 9.4 mg/dL (8.7-10.3); Carbon Dioxide 24.7 mmol/L (21.6-31.8); Chol/HDL Ratio 3.96; Globulin 2.6 g/dL (1.6-3.3); LDL Cholesterol,Calculated 124.2 mg/dL (0.0-131.0); Non-African American GFR(CKD) 83.8 (60.0-200.0); Potassium 4.1 mmol/L (3.5-5.5); Total Bilirubin 0.4 mg/dL (0.2-1.2); Total Protein 7.1 g/dL (6.2-8.2); VLDL Calculation 17.8 mg/dL (5.00-40.00)
== END | disposition home or self-care (01) ==
LOC: LABWHC1 07:59
PROVIDERS: ATTEND Family Medicine
DX: I77.810 Thoracic aortic ectasia (principal)
CPT/HCPCS: 36415; 80053; 80061; 85025

== ENCOUNTER → 2020-10-04 | Outpatient (CLI) | payer OTHER ==
[2020-10-05 00:41] LABS: Anti-DNA, DS unit <1.0 IU/mL; Cyclic Citrull Pep IgG Unit <0.5 U/mL; Cyclic Citrullinated Pep IgG NEGATIVE (NEGATIVE); DNA Double-Stranded NEGATIVE (NEGATIVE)
[2020-10-05 05:29] LABS: C Reactive Protein <0.4 mg/dL (0.0-0.8); Rheumatoid Factor, Qnt <4 IU/mL (0-13)
== END ==
LOC: LABWHC1 15:05
PROVIDERS: ATTEND Family Medicine
DX: H20.9 Unspecified iridocyclitis (principal)
CPT/HCPCS: 36415; 85652; 86038; 86140; 86200; 86225; 86235; 86431

== ENCOUNTER → 2021-05-15 | Outpatient (CLI) | payer OTHER ==
[2021-05-15 10:51] LABS: Basophils # (A) 0.02 X 10*3/uL (0.00-0.10); Basophils % (A) 0.5 %; Eosinophils % (A) 2.4 %; HCT 43.6 % (39.6-50.0); HGB 14.3 g/dL (13.0-17.0); Lymphocytes # (A) 1.68 X 10*3/uL (0.90-5.00); Lymphocytes % (A) 40.8 %; MCH 30.1 pg (27.0-32.0); MCHC 32.8 g/dL (32.0-37.0); MCV 91.8 fL (80.0-97.0); Mean Platelet Volume 9.7 fL (9.5-12.2); Monocytes # (A) 0.36 X 10*3/uL (0.20-1.00); Monocytes % (A) 8.7 %; Neutrophils # (A) 1.95 X 10*3/uL (1.80-7.70); Neutrophils % (A) 47.4 %; Platelet Count 188 X 10*3/uL (140-440); RBC 4.75 X 10*6/uL (4.40-5.60); RDW 11.5 % (11.5-14.5); WBC 4.12 X 10*3/uL (4.50-10.00)
[2021-05-15 11:13] LABS: African American GFR (CKD) 109.5 (60.0-200.0); Albumin 4.5 g/dL (3.8-4.9); Albumin/Globulin Ratio 1.73 (1.60-3.17); Anion Gap 9.3 mmol/L (10.00-18.00); BUN/Creat Ratio 15.67 Ratio (12.00-20.00); Blood Urea Nitrogen 14.1 mg/dL (9.0-27.0); Calcium 9.3 mg/dL (8.7-10.3); Carbon Dioxide 23.7 mmol/L (20.0-27.5); Globulin 2.6 g/dL (1.6-3.3); HDL Cholesterol 49.3 mg/dL (40.00-60.00); Non-African American GFR(CKD) 94.5 (60.0-200.0); Potassium 4.2 mmol/L (3.5-5.5); Total Bilirubin 0.3 mg/dL (0.30-1.20); Total Protein 7.1 g/dL (6.2-8.2); Triglycerides 46.4 mg/dL (0.00-149.00)
[2021-05-15 11:24] LABS: Chol/HDL Ratio 3.57 Ratio
== END | disposition home or self-care (01) ==
LOC: LABWHC1 07:07
PROVIDERS: ATTEND Family Medicine
DX: Z00.00 Encounter for general adult medical examination without abnormal findings (principal); I10 Essential (primary) hypertension; E78.5 Hyperlipidemia, unspecified; R53.83 Other fatigue
CPT/HCPCS: 36415; 80053; 80061; 83721; 84443; 85025

== ENCOUNTER → 2023-05-13 | Outpatient (CLI) | payer OTHER ==
--- NOTE | 2023-05-13 08:37 | CT ---
EXAMINATION TYPE: CT chest w con DATE OF EXAM: 05/13/2023 COMPARISON: HISTORY: Solitary pulmonary nodule and dilated aortic root. No complaints per patient. CT DLP: 253.7 mGycm, Automated exposure control for dose reduction was used. CONTRAST: Performed injected with 100ml mL of Isovue 300. TECHNIQUE: Axial images were obtained at 5 mm thick sections. Reconstructed images are reviewed on [employer] computer in the coronal plane. FINDINGS: Portion of the thyroid visualized is normal. No suspicious lung nodules or focal infiltrates are present. Previous densities in the posterior depe ndent lung bases have resolved No enlarged mediastinal or hilar adenopathy is evident. The ascending aorta diameter at the level o f the main pulmonary artery is 4.4 cm. The aortic root is 4.0 cm. The main pulmonary artery diameter at the bifurcation is 2.[address] sections are obtained through the upper abdomen. There is mild fatty infiltration liver. A 1.6 cm cortical renal cysts on the left upper kidney. IMPRESSION: 1. Ascending thoracic aortic aneurysm 4.4 cm. The aortic root remains aneurysmal at 4.0 cm. 2. Resolution previous lung densities.
== END | disposition home or self-care (01) ==
LOC: RADCTMAIN 07:53
PROVIDERS: ATTEND Family Medicine
DX: I71.21 Aneurysm of the ascending aorta, without rupture (principal); R91.1 Solitary pulmonary nodule
CPT/HCPCS: 71260; Q9967

== ENCOUNTER → 2024-07-19 | Outpatient (CLI) | payer OTHER ==
--- NOTE | 2024-07-19 11:45 | CT ---
EXAMINATION TYPE: CT chest w con DATE OF EXAM: 07/19/2024 11:06 AM COMPARISON: 05/13/2019. CLINICAL INDICATION: Male, 58 years old with history of I77.810 THORACIC AORTIC ECTASIA; PHH, THORACI C AORTIC ECTASIA TECHNIQUE: Multiple axial images were obtained through the chest. Sagittal and coronal reformats were created for review. MIP was performed on a separate workstation. Contrast used:100 ML mL of Isovue 300 with IV Contrast (None if empty) Oral contrast used: (None if empty) CT DLP: 328.70 mGycm, Automated exposure control for dose reduction was used. FINDINGS: LUNGS/ PLEURA: No focal consolidation; abdominal, pneumothorax or pleural effusion. Right major fissu re intrafissural lymph node series 3 image 32. AIRWAY: Patent and unremarkable. HEART: Size within normal limits. No significant coronary artery calcifications. MEDIASTINUM: No gross evidence of adenopathy. VASCULATURE: . Ascending thoracic aorta ectasia up to 42 mm. No evidence for filling defect or cyst just dissection. No aneurysmal dilation. No evidence for filling defect within the central pulmonary arterial vasculature. MUSCULOSKELETAL: Moderate disc degeneration changes are present throughout the thoracolumbar spine se condary to osteophyte formation and facet joint arthropathy. SOFT TISSUES/LYMPH NODES: Unremarkable. LOWER NECK: No significant findings. UPPER ABDOMEN: Left renal cyst and simple appearing measuring 19 mm. No follow-up recommended. Right renal cyst measuring 11 mm. No follow-up recommended. IMPRESSION: 1. No evidence for dissection or occlusion. 2. Ascending thoracic aorta ectasia up to 42 mm. Follow up recommendations for incidental pulmonary nodules, if there are any, are per [employer] [employer] or [place] [employer]. https://radiopaedia.org/articles/gabyixrwdz-axaznhd-gnbezblhg-wgmslk-[email or web address]-5?lang=us [facility], , 07/19/2024 11:43 AM
== END | disposition home or self-care (01) ==
LOC: RADCTMAIN 09:48
PROVIDERS: ATTEND Internal Medicine
DX: I77.810 Thoracic aortic ectasia (principal)
CPT/HCPCS: 71260; Q9967